=== PATIENT | female | born 1935 | race Two or more races ===

== ENCOUNTER 2021-10-31 12:24 | Emergency (ER) | payer OTHER ==
[~2021-10-31] VITALS: Ht 149.9 cm; Wt 74.8 kg
[2021-10-31] MEDS ORDERED: METFORMIN HCL500 M3 (12:47)
[2021-10-31] MEDS ORDERED: FOSAMAX70 MG (12:49)
[2021-10-31] MEDS ORDERED: LOSARTAN POTASS50 MG (12:49)
[2021-10-31] MEDS ORDERED: KLOR-CON M1010 MEQ (12:49)
[2021-10-31] MEDS ORDERED: GLIMEPIRIDE2 M1 (12:49)
[2021-11-01] MEDS ORDERED: COZAAR100 MG PO (12:35)
[2021-11-01] MEDS ORDERED: CALCIUM PO (12:35)
[2021-11-01] MEDS ORDERED: MAGNESIU PO (12:36)
== END 2021-10-31 14:16 | disposition home or self-care (01) ==
LOC: ER 12:24
DX: S42.302A Unspecified fracture of shaft of humerus, left arm, initial encounter for closed fracture (principal); W18.30XA Fall on same level, unspecified, initial encounter; Y93.9 Activity, unspecified; Y92.019 Unspecified place in single-family (private) house as the place of occurrence of the external cause

== ENCOUNTER 2021-11-05 10:38 | Day surgery (SDC) | payer OTHER ==
[~2021-11-05 10:38] MED LIST: CALCIUM PO; COZAAR100 MG PO; FOSAMAX70 MG; GLIMEPIRIDE2 M1; KLOR-CON M1010 MEQ; LOSARTAN POTASS50 MG; MAGNESIU PO; METFORMIN HCL500 M3
== END 2021-11-05 15:40 | disposition home or self-care (01) ==
LOC: CIR.AMB 10:38
PROVIDERS: ATTEND Orthopaedic Surgery
DX: M75.122 Complete rotator cuff tear or rupture of left shoulder, not specified as traumatic (principal); M19.012 Primary osteoarthritis, left shoulder; I10 Essential (primary) hypertension; E11.9 Type 2 diabetes mellitus without complications; E66.9 Obesity, unspecified; Z79.84 Long term (current) use of oral hypoglycemic drugs; Z20.822 Contact with and (suspected) exposure to COVID-19; K57.30 Diverticulosis of large intestine without perforation or abscess without bleeding
CPT/HCPCS: 23420; 24516; L8699

== ENCOUNTER 2022-01-09 09:29 | Outpatient (CLI) | payer OTHER | END 2022-01-09 09:30 | disposition home or self-care (01) | LOC: RAD 09:29 | PROVIDERS: ATTEND Orthopaedic Surgery | DX: S42.352D Displaced comminuted fracture of shaft of humerus, left arm, subsequent encounter for fracture with routine healing (principal) ==

== ENCOUNTER 2025-06-27 09:46 | Outpatient (CLI) | payer OTHER | END 2025-06-27 09:50 | disposition home or self-care (01) | LOC: RAD 09:46 | PROVIDERS: ATTEND Orthopaedic Surgery | DX: S42.352A Displaced comminuted fracture of shaft of humerus, left arm, initial encounter for closed fracture (principal); S50.12XA Contusion of left forearm, initial encounter ==